=== PATIENT | female | born 1980 | race American Indian/Alaskan Native ===

== ENCOUNTER 2016-07-22 12:30 | Emergency (ER) | payer SELFPAY ==
[2016-07-22] MEDS ORDERED: MORPHINE IV ONE ×2 (12:59→14:54)
[2016-07-22] MEDS ORDERED: ZOFRAN IV ONE (12:59)
--- NOTE | 2016-07-22 13:11 | Emergency Department Report ---
ED Chest Pain HPI - General Chief Complaint: Chest Pain Stated Complaint: CHEST PAIN Time Seen by Provider: 07/22/16 12:54 Source: patient, EMS Mode of arrival: Stretcher Limitations: No Limitations - History of Present Illness Initial Comments: 36-year-old male presents to the emergency department complaining of chest pain and bilateral knee pain. Patient reports onset of midsternal chest pain this morning. Patient is unable to state a specific time of onset. Patient describes the pain as sharp. Pain did not radiate. Patient states at first he thought it was heartburn, but it did not go away. He states his legs locked up and he was unable to walk. He reports associated dizziness and shortness of breath. Patient was given 324 mg of aspirin and 1 sublingual nitroglycerin by EMS. He reports resolution of his chest pain. He continues to complain of sharp bilateral knee pain. There are no other complaints. MD Complaint: chest pain -: Sudden, This morning Onset: during rest Pain Location: substernal Pain Radiation: none Severity: moderate Severity scale (0 -10): 6 Quality: sharp Consistency: constant, now resolved Improves With: nitroglycerin Worsens With: nothing re: dyspnea, other (lightheadedness) Treatments Prior to Arrival: aspirin, nitroglycerin Aspirin use within the Past 7 Days: (0) No - Related Data Previous Rx's Medication Instructions Recorded Last Taken Type Ibuprofen [Motrin 800 MG tab] 800 mg PO Q8HR #30 tablet 07/22/16 Unknown Rx Allergies Allergy/AdvReac Type Severity Reaction Status Date / Time No Known Allergies Allergy Unverified 07/22/16 12:46 NATE score - Nate Score Age > 65: (0) No Aspirin use within the Past 7 Days: (0) No 3 or more CAD Risk Factors: (0) No 2 or more Angina events in past 24 hrs: (0) No Known CAD with more than 50% Stenosis: (0) No Elevated Cardiac Markers: (0) No ST Deviation Greater than 0.5mm: (0) No NATE Score: 0 ED Review of Systems ROS: Stated complaint: CHEST PAIN Other details as noted in HPI Comment: All other systems reviewed and negative Respiratory: shortness of breath Cardiovascular: chest pain, syncope (lightheadedness, no loss of consciousness) Musculoskeletal: as per HPI, arthralgia ED Past Medical Hx - Past Medical History Previous Medical History?: Yes Hx Hypertension: Yes - Surgical History Past Surgical History?: Yes Additional Surgical History: Left shoulder - Family History Family history: no significant - Social History Smoking Status: Never Smoker Substance Use Type: Alcohol - Medications Home Medications: Home Medications Medication Instructions Recorded Confirmed Last Taken Type Ibuprofen [Motrin 800 MG tab] 800 mg PO Q8HR #30 tablet 07/22/16 Unknown Rx ED Physical Exam - General Limitations: No Limitations General appearance: alert, in no apparent distress - Head Head exam: Present: atraumatic, normocephalic - Eye Eye exam: Present: normal appearance, PERRL, EOMI - ENT ENT exam: Present: normal exam, normal orophraynx, mucous membranes moist - Neck Neck exam: Present: normal inspection, full ROM. Absent: tenderness - Respiratory Respiratory exam: Present: normal lung sounds bilaterally. Absent: respiratory distress - Cardiovascular Cardiovascular Exam: Present: normal rhythm, tachycardia, normal heart sounds - GI/Abdominal GI/Abdominal exam: Present: soft, normal bowel sounds. Absent: distended, tenderness - Extremities Exam Extremities exam: Present: normal inspection, full ROM, tenderness (tenderness to palpation over bilateral patellar tendons. No deformity noted. No erythema or effusion present.) - Back Exam Back exam: Present: normal inspection, full ROM. Absent: tenderness - Neurological Exam Neurological exam: Present: alert, oriented X3. Absent: motor sensory deficit - Skin Skin exam: Present: warm, dry, intact ED Course Vital Signs 07/22/16 07/22/16 07/22/16 12:31 12:40 12:41 Temperature 99.0 F Pulse Rate 114 H 114 H 117 H Respiratory 19 21 16 Rate Blood Pressure 150/109 150/109 O2 Sat by Pulse 97 96 Oximetry 07/22/16 07/22/16 07/22/16 12:50 13:00 13:30 Temperature Pulse Rate 112 H 105 H 104 H Respiratory 17 15 Rate Blood Pressure 150/109 152/110 O2 Sat by Pulse 100 97 Oximetry 07/22/16 14:00 Temperature Pulse Rate 103 H Respiratory 23 Rate Blood Pressure 152/103 O2 Sat by Pulse 96 Oximetry ED Medical Decision Making - Lab Data Result diagrams: 07/22/16 12:55 07/22/16 12:55 - EKG Data -: EKG Interpreted by Me EKG shows normal: sinus rhythm, axis, intervals, QRS complexes, ST-T waves Rate: tachycardia - EKG Data When compared to previous EKG there are: previous EKG unavailable Interpretation: normal EKG - Medical Decision Making Lab results reviewed and discussed with the patient. Patient reports feeling somewhat better with medication. Patient has had a nonischemic ECG and 2 negative troponins. Patient did remain somewhat tachycardic, but a d-dimer was negative. Patient will be discharged home at this time to follow-up with his primary care physician. - Differential Diagnosis ACS, atypical chest pain, patellar tendon strain Critical care attestation.: If time is entered above; I have spent that time in minutes in the direct care of this critically ill patient, excluding procedure time. ED Disposition Clinical Impression: Non-cardiac chest pain Patellar tendon strain Qualifiers: Encounter type: initial encounter Laterality: right Qualified Code(s): S86.811A - Strain of other muscle(s) and tendon(s) at lower leg level, right leg , initial encounter Disposition: DISCHARGED TO HOME OR SELFCARE Is pt being admited?: No Condition: Stable Instructions: Chest Pain (ED), Patellar Tendinitis (ED) Prescriptions: Ibuprofen [Motrin 800 MG tab] 800 mg PO Q8HR #30 tablet Referrals: PRIMARY CARE, [Primary Care Provider] - 3-5 Days Time of Disposition: 15:54
[2016-07-22 13:13] LABS: Basophils % (Auto) 0.5 % (0.0-1.8); Eosinophils % (Auto) 2.4 % (0.0-4.3); Hematocrit 41.7 % (30.3-42.9); Hemoglobin 13.6 gm/dl (10.1-14.3); Mean Corpuscular HGB Conc 33 % (30-34); Mean Corpuscular Hemoglobin 30 pg (28-32); Mean Corpuscular Volume 91 fl (79-97); Platelet Count 301 K/mm3 (140-440); Red Blood Count 4.57 M/mm3 (3.65-5.03); Red Cell Distribution Width 14.9 % (13.2-15.2); White Blood Count 15.9 K/mm3 (4.5-11.0)
[2016-07-22 13:29] LABS: Anion Gap 20 mmol/L; Blood Urea Nitrogen 8 mg/dL (7-17); Carbon Dioxide 28 mmol/L (22-30); Glucose 109 mg/dL (65-100); Potassium 3.8 mmol/L (3.6-5.0); Sodium 136 mmol/L (137-145)
[2016-07-22] MEDS ORDERED: MOTRIN PO ONE (15:37)
[2016-07-22 16:31] VITALS: BP 145/102
[2016-07-22] MEDS ORDERED: DECADRON IM ONE (17:16)
== END 2016-07-22 17:34 | disposition home or self-care (01) ==
LOC: ED 12:30
DX: S86.811A Strain of other muscle(s) and tendon(s) at lower leg level, right leg, initial encounter (principal); I10 Essential (primary) hypertension; X58.XXXA Exposure to other specified factors, initial encounter; Y93.9 Activity, unspecified; Y92.9 Unspecified place or not applicable; Y99.9 Unspecified external cause status
CPT/HCPCS: 36415; 80048; 84484; 85025; 85379; 93005; 93010; 96372; 96374; 96375; 96376; 99284; J1100; J2270; J2405